=== PATIENT | female | born 1950 | race Caucasian/White ===

== ENCOUNTER 2016-11-11 16:27 | Emergency (ER) | payer OTHER ==
[2016-11-11 17:15] VITALS: BP 141/65
--- NOTE | 2016-11-11 17:42 | UC ---
Cardiac HPI - HPI Summary HPI Summary: 66 yo F with hx breast cancer 20 yrs ago s/p mastectomy on the left in with removal of a few ribs, and then breast cancer on the right recurrent 06/2016 presents with cough and congestion for a few days. Pt presents tonight because when she coughs she feels her heart coming out of that opening. Pt also has hx afib and c/o chest heaviness. - History of Current Complaint Chief Complaint: UCRespiratory Stated Complaint: COUGH/CONGESTION Time Seen by Provider: 11/11/16 17:23 Hx Obtained From: Patient Onset/Duration: Gradual Onset, Lasting Days, Still Present Timing: Constant Initial Severity: Moderate Current Severity: Moderate Pain Intensity: 5 Chest Pain Location: Mid Sternal Character: Pounding - heart coming out of opening where ribs were removed, Pressure/Squeezing Aggravating: Nothing Alleviating: Nothing Associated Signs & Symptoms: Positive: Chest Pain, SOB, Cough - Risk Factors Pulmonary Embolism Risk Factors: Malignancy - Allergy/Home Medications Allergies/Adverse Reactions: Allergies Allergy/AdvReac Type Severity Reaction Status Date / Time Vancomycin Allergy Severe Unknown Verified 11/11/16 17:15 Reaction Details Ciprofloxacin [From Cipro] Allergy Mild rash outer Verified 11/11/16 17:15 throat area Fexofenadine [From Chelsey] Allergy Mild states Verified 11/11/16 17:15 heart races Environmental/Seasonal Allergy Sneeze, Uncoded 11/11/16 17:15 Hayfever Watery eyes PMH/Surg Hx/FS Hx/Imm Hx Endocrine History Of: Denies: Diabetes Cardiovascular History Of: Reports: Cardiac Disorders, Hypertension - ON MED Denies: Pacemaker/ICD, Congestive Heart Failure GI/ History Of: Denies: Renal Disease Cancer History Of: Reports: Breast Cancer - Surgical History Surgical History: Yes Surgery Procedure, Year, and Place: spleenectomy,left breast mastectomy 1995, ATTEMPTED LEFT BREAST RECONSTRUCTION 2012. REMOVAL OF 2 RIB SURGERIES 2012 - Family History Known Family History: Positive: Cardiac Disease - Social History Lives: With Family Alcohol Use: None Substance Use Type: None Smoking Status (MU): Never Smoked Tobacco - Immunization History Most Recent Tetanus Shot: 2006 Review of Systems Constitutional: Negative Respiratory: Cough Cardiovascular: Chest Pain Genitourinary: Negative Motor: Negative Neurovascular: Negative Neurological: Negative Psychological: Negative All Other Systems Reviewed And Are Negative: Yes Physical Exam Triage Information Reviewed: Yes Appearance: Well-Nourished, Ill-Appearing, Pain Distress Vital Signs: Initial Vital Signs Temp 99.1 F 11/11/16 17:08 Pulse 78 11/11/16 17:08 Resp 18 11/11/16 17:08 BP 141/65 11/11/16 17:08 Pulse Ox 98 11/11/16 17:08 Vital Signs Reviewed: Yes Eyes: Positive: Conjunctiva Clear ENT: Positive: Normal ENT inspection Neck: Positive: Supple, Nontender, No Lymphadenopathy Respiratory: Positive: No respiratory distress, Other: - cannot take a deep breath without coughing Cardiovascular: Positive: RRR, No Murmur, Pulses Normal, Brisk Capillary Refill Musculoskeletal: Positive: Strength Intact, ROM Intact Neurological: Positive: Alert, Muscle Tone Normal Psychological Exam: Normal Skin Exam: Normal - Differential Diagnoses - Chest Pain Differential Diagnosis/HQI/PQRI: Acute ID, ACS, CHF, Lower Respiratory Infection , Pulmonary Embolism - Clinical Impression Provider Diagnoses: chest pain. acute cough. hx breast cancer. hx afib. HTN in poor control - Physician Notifications Time Discussed With Above Provider: 18:00 - Piotr Britt NP at [facility] Discharge - Discharge Plan Condition: Stable Disposition: AGAINST MEDICAL ADVICE Discharge Disposition Comment: pt to go by private car to [facility] ED with son and grandson driving Referrals: Pako Neff MD [Primary Care Provider] -
== END 2016-11-11 18:00 | disposition left against medical advice (07) ==
LOC: UCCORT 16:27
DX: R07.89 Other chest pain (principal); I48.91 Unspecified atrial fibrillation; I10 Essential (primary) hypertension; Z85.3 Personal history of malignant neoplasm of breast; Z88.1 Allergy status to other antibiotic agents
CPT/HCPCS: 93005; 99213; G0463

== ENCOUNTER 2019-08-30 09:41 | Day surgery (SDC) | payer MEDICARE, BC ==
[~2019-08-30 09:41] MED LIST: Buffered Lidocaine 1% SYRIN* 1 ML/SYRINGE INTRADERM ONE; Lactated Ringers 1000 ML Bag* 1,000 ML IV SCH
[2019-08-30] MEDS ORDERED: Buffered Lidocaine 1% SYRIN* 1 ML/SYRINGE INTRADERM ONE (10:38)
[2019-08-30] MEDS ORDERED: Etomidate* 2 MG/ML 10 ML VIAL ONE (12:41)
[2019-08-30] MEDS ORDERED: Lidocaine 2% PF * 5 ML VIAL ONE (12:41)
[2019-08-30] MEDS ORDERED: Propofol* 10 MG/ML 20 ML BTL ONE ×3 (12:41→13:15)
[2019-08-30] MEDS ORDERED: Sodium Citrate/Citric Acid* 15 ML UDC ONE (13:30)
[2019-08-30 14:47] VITALS: BP 103/73
--- NOTE | 2019-09-01 15:07 | PRO ---
CC: Dr. Pako Neff * DATE OF PROCEDURE: 08/30/19 - [facility] PROCEDURE: Colonoscopy to cecum with jumbo biopsy polypectomy x2. REFERRING PROVIDER: Dr. Pako Neff. 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 She also has multiple family members with colon cancer including aunts and cousins as well as a sister. Last colonoscopy in 2013 demonstrated 2 cecal polyps that were adenomatous. She was uncomfortable during that procedure. She was hesitant to have another colonoscopy after she felt that a ventral hernia developed following the colonoscopy. Virtual colonoscopy in 2018 was without polyps. Presents today for repeat colonoscopy with anesthesia. MEDICATIONS GIVEN: By Anesthesia. DESCRIPTION OF PROCEDURE: Full disclosure of risks was reviewed with the patient as detailed on the consent form. The patient was placed in the left lateral decubitus position and monitored with continuous pulse oximetry, capnography, interval blood pressure monitoring, and direct observation. After anorectal examination was performed, the adult colonoscope was inserted into the rectum and slowly advanced forward to the sigmoid. There was significant tortuosity with acutely angled flexures in the sigmoid colon. Scope was unable to advance forward without resistance. The scope was then withdrawn and removed from the patient. A pediatric colonoscope was then inserted into the patient's rectum and slowly advanced forward. Use of water insufflation technique and slow careful maneuvering allowed for advancement through the sigmoid colon. There was then significant looping of the colonoscope, which was difficult to manage with abdominal pressure. The procedure was quite arduous due to this underlying challenging anatomy. Scope was eventually able to reach the cecum, although I was unable to obtain a stable position in the cecum. I was able to see the ileocecal valve as well as the appendiceal orifice. There was a 2 to 3 mm polyp in the cecum that was removed with jumbo biopsy forceps. There was 1 section of the cecum, which was not well visualized. On several brief views, I was concerned that there might be a large sessile polyp in this area of the cecum. Despite multiple attempts to regain access to this area, it was unsuccessful. Scope was then slowly withdrawn. Along the ileocecal valve, there was a 2 mm polyp, removed with jumbo biopsy forceps. Scope was then withdrawn slowly. There was moderate-to- severe diverticulosis in the sigmoid colon resulting in luminal narrowing and muscular hypertrophy. Retroflexion in the rectum revealed internal hemorrhoids and hypertrophied anal papillae. Scope was then withdrawn from the patient. The patient tolerated the procedure well and was recovered in the GI recovery area. IMPRESSION: 1. Complete colonoscopy to the cecum, although views of the cecum were limited. 2. Possible cecal polyp seen in the area of the cecum that was not well visualized. 3. Two tiny polyps removed as above. 4. [id number] sigmoid diverticulosis. FOLLOWUP: 1. Await pathology. 2. Given the patient's genetic mutation and known family history of polyps as well as personal history of polyps in the cecum, I think it would be most prudent to refer the patient to [facility] [place]. I would recommend Dr. Jeffrey Love repeat the colonoscopy. It is possible that he may need to use a slim colonoscope or an enteroscopy scope. We would like to ensure that the cecum is able to be completely visualized particularly given my concern that there might be a polyp in this area. 3. Recommend high-fiber diet given the presence of diverticulosis. Thank you very much for this referral. [id number]/[facility] #: [id number] CHARLIE
== END 2019-08-30 14:59 | disposition home or self-care (01) ==
LOC: OR 09:41
PROVIDERS: ATTEND Internal Medicine Gastroenterology
DX: Z09 Encounter for follow-up examination after completed treatment for conditions other than malignant neoplasm (principal); Z86.010 Personal history of colon polyps; Z80.0 Family history of malignant neoplasm of digestive organs; D12.0 Benign neoplasm of cecum; Z15.09 Genetic susceptibility to other malignant neoplasm; K57.30 Diverticulosis of large intestine without perforation or abscess without bleeding; R19.7 Diarrhea, unspecified; R14.0 Abdominal distension (gaseous); I50.9 Heart failure, unspecified; F41.8 Other specified anxiety disorders; G89.29 Other chronic pain; I12.9 Hypertensive chronic kidney disease with stage 1 through stage 4 chronic kidney disease, or unspecified chronic kidney disease; N18.9 Chronic kidney disease, unspecified; M19.90 Unspecified osteoarthritis, unspecified site; I48.91 Unspecified atrial fibrillation; Z85.3 Personal history of malignant neoplasm of breast; C91.41 Hairy cell leukemia, in remission
CPT/HCPCS: 88305; A9270-GY; J2704